=== PATIENT | female | born 1995 | race Caucasian/White ===

== ENCOUNTER 2016-04-08 08:44 | Inpatient (IN) | payer MEDICAID ==
[~2016-04-08] VITALS: Ht 152.4 cm; Wt 70.9 kg
[~2016-04-08 08:44] MED LIST: CEFAZOLIN 1 GM INJ ONE
[2016-04-08 08:57] VITALS: Ht 152.4 cm; Wt 70.9 kg
[2016-04-08] MEDS ORDERED: OXYTOCIN 30 UNITS/LR 500 ML IV SCH ×2 (09:00→10:00)
[2016-04-08] MEDS ORDERED: OXYTOCIN 30 UNITS/LR 500 ML IV PRN ×2 (09:00→16:30)
[2016-04-08] MEDS ORDERED: CEFAZOLIN 2 GM/50 ML (PMX) 50 ML IV SCH (09:00)
[2016-04-08] MEDS ORDERED: METHYLERGONOVINE 0.2 MG INJ IM PRN ×2 (09:00→16:30)
[2016-04-08] MEDS ORDERED: CARBOPROST 250 MCG INJ IM PRN ×2 (09:00→16:30)
[2016-04-08] MEDS ORDERED: MISOPROSTOL 200 MCG TAB PR PRN ×2 (09:00→16:30)
[2016-04-08] MEDS: LACTATED RINGER'S 1,000 ML IV SCH ×3 (09:35→11:19)
[2016-04-08 09:38] VITALS: BP 114/72; PULSE 67; RESP 20
[2016-04-08] MEDS ORDERED: PRENAT PO (09:41)
[2016-04-08 10:00] LABS: ADD SCAN DIFF NO
[2016-04-08 10:06] LABS: BASOPHILS % 0.2 % (0.0-2.0); EOSINOPHILS # 0.1 10^3/ul (0.0-0.5); EOSINOPHILS % 0.8 % (0.0-7.0); HEMOGLOBIN 12.7 g/dl (12.0-16.0); LYMPHOCYTES # 2.6 10^3/ul (0.8-2.9); LYMPHOCYTES % 28.3 % (15.0-51.0); MEAN CORPUSCULAR HEMOGLOBIN 31.4 pg (29.0-33.0); MEAN CORPUSCULAR HGB CONC 35.3 g/dl (32.0-37.0); MEAN CORPUSCULAR VOLUME 89.1 fl (82.0-101.0); MEAN PLATELET VOLUME 10.6 fl (7.4-10.4); MONOCYTE # 0.5 10^3/ul (0.3-0.9); NEUTROPHILS % 64.9 % (39.0-77.0); PLATELET COUNT 152 10^3/UL (140-415); RED BLOOD COUNT 4.04 10^6/ul (4.20-5.40); RED CELL DISTRIBUTION WIDTH 13.8 % (11.5-14.5); WHITE BLOOD COUNT 9.3 10^3/ul (4.8-10.8)
[2016-04-08 10:11] LABS: INR 0.95; PROTIME 12.7 Sec (12.2-14.2)
[2016-04-08 10:12] LABS: PARTIAL THROMBOPLASTIN TIME 27.1 Sec (25.0-35.0)
[2016-04-08] MEDS ORDERED: CITRIC ACID/NA CITRATE 30 ML CUP ONE (11:38)
[2016-04-08] MEDS ORDERED: ONDANSETRON 4 MG INJ ONE (11:39)
[2016-04-08] MEDS ORDERED: LACTATED RINGER'S 1,000 ML IV ONE (11:41)
[2016-04-08] MEDS ORDERED: morphine SULFATE/PF (10 MG/10 ML) INJ ONE (11:59)
[2016-04-08] MEDS ORDERED: FENTAnyl 50 MCG/ML VIAL ONE (11:59)
[2016-04-08] MEDS ORDERED: CITRIC ACID/NA CITRATE 30 ML CUP PO ONE (12:00)
[2016-04-08] MEDS ORDERED: ONDANSETRON 4 MG INJ IV ONE (12:00)
[2016-04-08] MEDS ORDERED: METOCLOPRAMIDE 10 MG INJ ONE (12:49)
[2016-04-08] MEDS ORDERED: EPHEDrine SULFATE 50 MG/5 ML SYG ONE (12:53)
[2016-04-08] MEDS ORDERED: NALOXONE (0.4 MG/ML) INJ IV PRN (13:30)
[2016-04-08] MEDS ORDERED: PROCHLORPERAZINE 10 MG INJ IV PRN (13:30)
[2016-04-08] MEDS ORDERED: ONDANSETRON 4 MG INJ IV PRN (13:30)
[2016-04-08] MEDS ORDERED: HYDROmorphONE 1 MG/ML SYG IV PRN ×2 (13:30)
[2016-04-08] MEDS ORDERED: DIPHENHYDRAMINE 50 MG INJ IV PRN (13:30)
--- NOTE | 2016-04-08 13:48 | HP ---
DATE OF ADMISSION: 04/08/2016 HISTORY OF PRESENT ILLNESS: This is a 20-year-old female, 2, para 1, EDC of 2016, history of previous , admitted at 39 weeks 4 days for a repeat section. Thi s patient has [facility] and course according to her pren atal not complicated with gestational diabetes, -induced hypertension, or any other serious medical or surgical condition. GYNECOLOGIC HISTORY: Menarche at age 9, regular period 28 days lasting for 5 days. History of one previous with . PAST MEDICAL HISTORY: No other surgery or hospitalization. ALLERGIES: SHE IS NOT ALLERGIC TO ANY KNOWN MEDICATION. SOCIAL HISTORY: Denies smoking and drinking. REVIEW OF SYSTEMS: Within normal. PHYSICAL EXAMINATION: VITAL SIGNS: She is 5 feet, 160 pounds with a temperature of 98.3, pulse of 80, respirations 19 and blood pressure 117/75. HEAD, EARS, NOSE AND THROAT: Negative. NECK: Supple. No thyromegaly. LUNGS: Clear to P and A. HEART: Normal sinus rhythm, no murmur. BREASTS: Status compatible with state of the . No abnormal palpable mass. No nipple retr action or discharge. No axillary adenopathy, no supraclavicular adenopathy. ABDOMEN: Measures approximately 36 cm from symphysis pubis with a heart rate category 1. PELVIC: Deferred. EXTREMITIES: No edema, no varicosities. IMPRESSION: 1. Intrauterine at 39 weeks plus gestation. 2. History of previous section undergoing a repeat section. The patient is aware of the complication of the surgery, including bowel or bladder injury, infection, hemorrhage, and h ematoma, and she is willing to go ahead with this procedure. Dictated By: BOOGIE AMBROCIO/NOAH Conf#: [id number] DID#: [id number]
--- NOTE | 2016-04-08 14:20 | OPR ---
DATE OF OPERATION: 04/08/2016 PREOPERATIVE DIAGNOSES: 1. Intrauterine at 39 weeks 4 days. 2. History of previous section. POSTOPERATIVE DIAGNOSIS: 1. Intrauterine at 39 weeks 4 days. 2. History of previous section. PROCEDURE: Repeat transverse low cervical section. SURGEON: Boogie Bauer MD COMPUTER NETWORK SPECIALIST: Justo Carrizales MD ANESTHESIA: Spinal. ANESTHESIOLOGIST: Maria Velez MD FINDINGS: Live baby boy with the 9 and 9. Baby weighed 2995 g. DETAILS OF THE PROCEDURE: Under satisfactory spinal anesthesia, the patient was prepped and draped and placed in supine position, tilted to the left. Pfannenstiel incision was made, incision carried through the subcutaneous tissue. Fascia incised to the length of the incision. Rectus muscle expo sed and divided in midline. Peritoneum exposed, entered through a transverse incision. Exploration of abdomen revealed a gravid uterus at term, normal-appearing tubes and ovaries. Mild adhesions wi th the omentum and anterior uterine wall which was taken down by the sharp and blunt dissection. Lo wer segment of the uterus was freed from the adhesions. Bladder flap was developed. Transverse inc ision was made in the lower segment of the uterus. Amniotic sac ruptured. Clear amniotic fluid not ed. Live baby boy was delivered from unengaged vertex. Nasal oropharyngeal suction was performed. Baby handed to the team for immediate attention. The patient received 20 units of Pitocin . Placenta delivered manually intact. Uterine cavity cleaned with wet sponge and drainage establis hed. Uterus closed in 2 layers using Monocryl #1 in continuous fashion. Peritoneal cavity irrigate d with warm saline. Sponge, needle, and instrument reported to be correct. Abdominal peritoneum cl osed with 2-0 chromic catgut continuously. Rectus muscle approximated with several interrupted 2-0 chromic catgut. Fascia closed with #1 PDS in a continuous fashion. Subcutaneous tissue irrigated w ith warm saline, approximated with interrupted 2-0 chromic catgut. Skin closed with jeremy. Estim ated blood loss 600 to 700 mL. Urine bag contained 200 mL of clear urine. Patient tolerated proced ure well, transferred to recovery room in a good condition. Dictated By: BOOGIE AMBROCIO/NTS Conf#: [id number] DID#: [id number]
[2016-04-08] MEDS: KETOROLAC 30 MG INJ IV PRN (14:58)
[2016-04-08] MEDS ORDERED: OXYCODONE/ACETAMINOPHEN (5/325) TAB PO PRN (16:30)
[2016-04-08] MEDS ORDERED: ACETAMINOPHEN/CODEINE #3 TAB PO PRN ×2 (16:30)
[2016-04-08] MEDS ORDERED: CEFAZOLIN 1 GM/50 ML (PMX) 50 ML IVPB SCH ×2 (16:30→21:00)
[2016-04-08] MEDS ORDERED: LANOLIN 7 GM TUBE TOP PRN (16:30)
[2016-04-08] MEDS: OXYTOCIN 30 UNITS/LR 500 ML IV SCH ×3 (19:08→23:41)
[2016-04-08 19:30] VITALS: BP 100/62; PULSE 75; RESP 19
[2016-04-09] VITALS: BP 105/61; PULSE 66; RESP 19
[2016-04-09] MEDS: KETOROLAC 30 MG INJ IV PRN (03:59)
[2016-04-09] MEDS ORDERED: LACTATED RINGER'S 1,000 ML IV PRN (04:00)
[2016-04-09] MEDS: OXYTOCIN 30 UNITS/LR 500 ML IV SCH ×5 (04:16→20:16)
[2016-04-09 04:30] VITALS: BP 126/65; PULSE 84; RESP 20
[2016-04-09 07:41] LABS: ADD SCAN DIFF NO
[2016-04-09 07:45] VITALS: BP 113/64; PULSE 90; RESP 18
[2016-04-09 07:50] LABS: BASOPHILS % 0.2 % (0.0-2.0); EOSINOPHILS # 0.1 10^3/ul (0.0-0.5); EOSINOPHILS % 0.9 % (0.0-7.0); HEMOGLOBIN 9.5 g/dl (12.0-16.0); LYMPHOCYTES # 2.3 10^3/ul (0.8-2.9); LYMPHOCYTES % 24.9 % (15.0-51.0); MEAN CORPUSCULAR HEMOGLOBIN 31.4 pg (29.0-33.0); MEAN CORPUSCULAR HGB CONC 33.9 g/dl (32.0-37.0); MEAN CORPUSCULAR VOLUME 92.4 fl (82.0-101.0); MEAN PLATELET VOLUME 10.2 fl (7.4-10.4); MONOCYTE # 0.5 10^3/ul (0.3-0.9); MONOCYTES % 5.4 % (0.0-11.0); NEUTROPHIL # 6.2 10^3/ul (1.6-7.5); PLATELET COUNT 128 10^3/UL (140-415); RED BLOOD COUNT 3.03 10^6/ul (4.20-5.40); RED CELL DISTRIBUTION WIDTH 13.9 % (11.5-14.5); WHITE BLOOD COUNT 9.1 10^3/ul (4.8-10.8)
[2016-04-09] MEDS ORDERED: INFLUENZA VIRUS VACCINE 0.5 ML (DISPENSING) IM* ONE (09:00)
--- NOTE | 2016-04-09 11:42 | PN ---
Date/Time of Note Date/Time of Note DATE: 04/09/16 TIME: 11:40 OB Subjective Subjective Subjective Post day 1 Afebrile, vital signs stable, abdomen soft, bowel sounds present, lochia normal , extremity normal, ambulation recommended BOOGIE WILSON MD Apr 09, 2016 11:42
[2016-04-09 12:14] VITALS: BP 116/65; PULSE 85; RESP 19
[2016-04-09] MEDS: SENNA/DOCUSATE NA (8.6MG/50MG) TAB PO SCH ×2 (12:14→21:37)
[2016-04-09 16:00] VITALS: BP 141/44; PULSE 140; RESP 19
[2016-04-09] MEDS: IBUPROFEN 600 MG TAB PO SCH ×2 (17:33→23:20)
[2016-04-09 20:20] VITALS: BP 112/62; PULSE 70; RESP 18
[2016-04-10] MEDS: OXYTOCIN 30 UNITS/LR 500 ML IV SCH ×7 (00:16→23:47)
[2016-04-10 04:30] VITALS: BP 115/69; PULSE 86; RESP 18
[2016-04-10] MEDS: IBUPROFEN 600 MG TAB PO SCH ×4 (05:52→23:46)
[2016-04-10 07:50] VITALS: BP 115/67; PULSE 85; RESP 18
[2016-04-10] MEDS: SENNA/DOCUSATE NA (8.6MG/50MG) TAB PO SCH ×2 (10:31→21:57)
--- NOTE | 2016-04-10 11:42 | PN ---
Date/Time of Note Date/Time of Note DATE: 04/10/16 TIME: 11:41 OB Subjective Subjective Subjective Post date Afebrile, vital signs stable, abdomen soft, incision dry, bowel sounds present, had normal bowel movement extremity normal,, plan of discharge a.gini. discussed. BOOGIE WILSON MD Apr 10, 2016 11:42
[2016-04-10 16:04] VITALS: BP 126/59; PULSE 77; RESP 18
[2016-04-10 20:00] VITALS: BP 120/61; PULSE 93; RESP 17
[2016-04-11 04:09] VITALS: BP 118/74; PULSE 75; RESP 18
[2016-04-11] MEDS: OXYTOCIN 30 UNITS/LR 500 ML IV SCH (04:16)
[2016-04-11] MEDS: IBUPROFEN 600 MG TAB PO SCH ×3 (05:38→17:39)
[2016-04-11 08:30] VITALS: BP 111/70; PULSE 80; RESP 18
[2016-04-11] MEDS: OXYCODONE/ACETAMINOPHEN (5/325) TAB PO PRN ×2 (08:30→17:43)
[2016-04-11] MEDS: SENNA/DOCUSATE NA (8.6MG/50MG) TAB PO SCH (08:30)
[2016-04-11] MEDS ORDERED: DIPHTH/TET/ACEL PERTUSS (ADULT) 0.5 ML VIAL IM* ONE (09:00)
--- NOTE | 2016-04-11 12:46 | PD.PPDC ---
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
--- NOTE | 2016-04-11 12:50 | DS ---
Date/Time of Note Date/Time of Note DATE: 04/11/16 TIME: 12:48 Obstetrical Discharge Record Final Diagnosis Final Diagnosis: Term delivered Section Section: Repeat Condition on Discharge Physical Assessment Last Vitals: 20 years old female admitted to [facility], underwent repeat C -section, postoperative course in the hospital was uneventful did not spike temp or having problem with bowel function or urination on the third postoperative day incision inspected healing well free of inflammation patient discharged home with follow-up instruction to be seen at the clinic in 4 days to discontinue her jeremy. Voiding: Yes Bowel Movement: Yes Breast: Soft, non-tender, Filling Fundus: Firm Abdomen and Incision: Healing well free of inflammation Calf Tenderness: No Patient Condition: Good BOOGIE WILSON MD Apr 11, 2016 12:50
[2016-04-11 16:10] VITALS: BP 114/71; PULSE 90; RESP 18
== END 2016-04-11 18:59 | disposition home or self-care (01) | DRG 766 ==
LOC: L-D 08:44 → PP1 17:27
PROVIDERS: ADMIT Obstetrics & Gynecology; ATTEND Obstetrics & Gynecology
PROC: 10D00Z1 Extraction of Products of Conception, Low, Open Approach (ICD-10-PCS; principal; 2016-04-08 12:30)
DX: O34.211 Maternal care for low transverse scar from previous cesarean delivery (principal); Z37.0 Single live birth; Z3A.39 39 weeks gestation of pregnancy
CPT/HCPCS: 85025; 85610; 85730; 86592; 86850; 86900; 86901; 90686; 90715; 94760; 99464; J0690; J1170; J1885; J2274; J2405; J2590; J2765; J3010; J7120